=== PATIENT | female | born 1970 ===

== ENCOUNTER → 2023-03-04 | Outpatient (CLI) | payer OTHER ==
[2023-03-04 11:22] LABS: CHOL/HDL RATIO 4.7; Cholesterol 180 mg/dL (50-200); Free Thyroxine 0.92 ng/dL (0.70-1.60); HDL Cholesterol 38 mg/dL (>39); LDL/HDL RATIO Unable to Calculate; Low Density Lipoprotein Chol Unable to Calculate mg/dL (<110); Thyroid Stimulating Hormone 0.109 uIU/mL (0.360-4.800); Triglycerides 502 mg/dL (30-160); Very Low Density Lipoprot Chol Unable to Calculate mg/dL (6-32)
== END | disposition home or self-care (01) ==
LOC: LAB 10:57 → LAB SHORT 10:57
PROVIDERS: Chiropractor
DX: E03.9 Hypothyroidism, unspecified (principal); E78.5 Hyperlipidemia, unspecified
CPT/HCPCS: 80061; 84439; 84443